=== PATIENT | female | born 1970 | race Caucasian/White ===

== ENCOUNTER 2017-05-20 13:32 | Emergency (ER) | payer OTHER ==
[2017-05-20 13:41] VITALS: PULSE 113; RESP 18; TEMP 98.1
--- NOTE | 2017-05-20 14:18 | EDPHY ---
H & P Time Seen by Provider: 05/20/17 14:07 HPI/ROS: This patient missed a stair (2nd of 2 stairs) going into her garage home night prior to arrival inverting her right ankle and following with 7/10 pain to the right lateral ankle since the injury when she moves or walks on it but mild pain at rest. She took 400 mg of ibuprofen prior to arrival with partial improvement she notes no other exacerbating factors. She denies any other injuries from the fall. ROS: Neuro- no numbness Cardiovascular: No pallor. Musculoskeletal: No other injuries and no foot pain. Integumentary: No lacerations. She has a superficial abrasion to right distal leg that she cleaned at home has causing no pain. 5 point ROS is otherwise neck Smoking Status: Never smoked Physical Exam: Physical Exam Vital signs are normal. General: No acute distress HEENT: Atraumatic. Eyes: Pupils equal and react to light. Extraocular motions are intact. Lungs: No respiratory distress. Cardiac: Brisk capillary refill is intact throughout. Pulses are 2+ and symmetric in the affected extremity. Skin: No rash or pallor. Extremities: Manic normal except for right ankle Right ankle: Patient has mild swelling and tenderness anterior and inferior to the lateral malleolus on the affected side with no laxity on anterior drawer, no Achilles tenderness or medial ankle tenderness. No 5th metatarsal tenderness or other foot tenderness. Neuro: Alert and oriented x3 with no sensorimotor deficits. Initial differential diagnosis: Ankle sprain versus fracture versus traumatic hematoma Constitutional: Initial Vital Signs Temperature (C) 36.7 C 05/20/17 13:38 Heart Rate 113 H 05/20/17 13:38 Respiratory Rate 18 05/20/17 13:38 Blood Pressure 139/87 H 05/20/17 13:38 O2 Sat (%) 94 05/20/17 13:38 O2 Delivery Mode Room Air Allergies/Adverse Reactions: Penicillins Allergy (Verified 05/20/17 13:40) phenytoin [From Dilantin] Allergy (Verified 05/20/17 13:40) Home Medications: Medication Instructions Recorded Steward Thyroid 05/20/17 Claritin 05/20/17 MDM/Departure - MDM Diagnostics: Ankle x-ray: Negative by my interpretation for fracture Imaging: I viewed and interpreted images myself ED Course/Re-evaluation: Patient is placed in a stirrup splint by our tech. I counseled her regarding ankle sprain and rehab exercises that will be of benefit. Discussion: Patient with grade 1 or mild grade 2 ankle sprain without evidence of complications or other injuries - Depart Disposition: Home, Routine, Self-Care Clinical Impression: Ankle sprain Qualifiers: Encounter type: initial encounter Involved ligament of ankle: tibiofibular ligament Laterality: right Qualified Code(s): S93.431A - Sprain of tibiofibular ligament of right ankle, initial encounter Condition: Good Instructions: Ankle Sprain (ED), Crutch Instructions (ED) Additional Instructions: Diagnosis: Ankle sprain Plan: Ibuprofen 400 600 mg every 6 hours for pain and swelling until symptoms resolve. Tylenol in addition if needed. Splint until your symptoms resolve. When you can bear weights and walk without any significant pain, then start rehabilitation exercises. These rehab. exercises will include gentle stretches the 4 directions, "the alphabet", and manual resistance exercises in the 4 directions. Continue these exercises for the next several months revealed to rebuild your ankle strength. If your ankle is not improving with the above plan or for worsening symptoms call orthopedic M.D. for followup appointment. Referrals: Telly Mullen MD [Medical Doctor] - As per Instructions
[2017-05-20 14:29] VITALS: BP 134/62; O2SAT 97
== END 2017-05-20 14:30 | disposition home or self-care (01) ==
LOC: CED 13:32
DX: S93.431A Sprain of tibiofibular ligament of right ankle, initial encounter (principal); X58.XXXA Exposure to other specified factors, initial encounter; Y92.009 Unspecified place in unspecified non-institutional (private) residence as the place of occurrence of the external cause
CPT/HCPCS: 73610-PO; L4350